=== PATIENT | male | born 1990 | race Caucasian/White ===

== ENCOUNTER 2017-05-14 15:34 | Emergency (ER) | payer SELFPAY ==
[~2017-05-14] VITALS: Ht 188 cm; Wt 107.3 kg
[2017-05-14] MEDS ORDERED: HYDROcodone/APAP 5/325 TABLET PO ONE (16:00)
[2017-05-14] MEDS ORDERED: KETOROLAC 30 MG/1 ML IM ONE (16:00)
[2017-05-14] MEDS ORDERED: DIAZEPAM 5 MG TABLET PO ONE (16:00)
[2017-05-14] MEDS ORDERED: DIAZEPAM 5 MG TABLET ONE (16:03)
[2017-05-14] MEDS ORDERED: HYDROcodone/APAP 5/325 TABLET ONE (16:04)
[2017-05-14] MEDS ORDERED: KETOROLAC 30 MG/1 ML ONE (16:04)
[2017-05-14 17:41] VITALS: BP 133/66
== END 2017-05-14 17:41 | disposition home or self-care (01) ==
LOC: ED 17:40
DX: S39.012A Strain of muscle, fascia and tendon of lower back, initial encounter (principal); M54.16 Radiculopathy, lumbar region; M54.18 Radiculopathy, sacral and sacrococcygeal region; X50.9XXA Other and unspecified overexertion or strenuous movements or postures, initial encounter; Y93.F2 Activity, caregiving, lifting; Y99.8 Other external cause status; Y92.89 Other specified places as the place of occurrence of the external cause
CPT/HCPCS: 96372; 99283; J1885

== ENCOUNTER 2017-07-30 21:36 | Observation (INO) | payer OTHER ==
[~2017-07-30] VITALS: Ht 185.4 cm; Wt 105.4 kg
[2017-07-30 22:21] LABS: MICROSCOPIC NOT IND
[2017-07-30 22:24] LABS: CULTURE INDICATED? NO
[2017-07-30 22:33] LABS: AMPHETAMINE SCREEN, URINE Negative (Negative); BARBITURATE SCREEN, URINE Negative (Negative); BENZODIAZEPINE SCREEN, URINE Negative (Negative); CANNABINOID SCREEN, URINE Negative (Negative); COCAINE SCREEN, URINE Negative (Negative); METHADONE SCREEN, URINE Negative (Negative); OPIATE SCREEN, URINE Negative (Negative)
[2017-07-30 22:49] LABS: MEAN CORPUSCULAR HEMOGLOBIN 30.5 pg (27.5-34.5); MEAN CORPUSCULAR HGB CONC 33.9 g/dL (33.2-36.2); MEAN PLATELET VOLUME 8.5 fL (7.4-10.4); PLATELET COUNT 294 x10^3/uL (130-400); RED BLOOD COUNT 5.51 x10^6/uL (4.38-5.82); RED CELL DISTRIBUTION WIDTH 15.3 % (9.4-14.8)
[2017-07-30 22:59] LABS: ALANINE AMINOTRANSFERASE 30 U/L (12-78); ALBUMIN 4.4 g/dL (3.4-5.0); ANION GAP 8 mmol/L (5-15); CHLORIDE 106 mmol/L (98-107); CREATININE 1.11 mg/dL (0.7-1.3)
[2017-07-30 23:01] LABS: ALKALINE PHOSPHATASE 87 U/L (45-117); BILIRUBIN,TOTAL 0.3 mg/dL (0.2-1.0); TOTAL PROTEIN 8.3 g/dL (6.4-8.2)
[2017-07-30 23:02] LABS: SALICYLATE LEVEL < 1.7 mg/dL (2.8-20.0)
[2017-07-30 23:03] LABS: ACETAMINOPHEN < 2 mcg/mL (10-30)
[2017-07-30 23:20] LABS: BASOPHILS % (AUTO) 1 % (0-1); EOSINOPHILS % (AUTO) 2 % (1-7); LYMPHOCYTES # (AUTO) 2.75 x10^3/uL (1-3.4); LYMPHOCYTES % (AUTO) 26 % (22-44); MD SCAN; MONOCYTES # (AUTO) 1.62 x10^3/uL (0.2-0.8); MONOCYTES % (AUTO) 15 % (2-9); NEUTROPHILS # (AUTO) 5.91 x10^3/uL (1.8-6.8); NEUTROPHILS % (AUTO) 56 % (42-75)
[2017-07-31] MEDS ORDERED: ZIPRASIDONE 40MG CAPSULE PO STA (02:53)
[2017-07-31] MEDS ORDERED: ONDANSETRON ODT 4 MG PO PRN (04:30)
[2017-07-31] MEDS ORDERED: BISACODYL 10 MG SUPP PR PRN (04:30)
[2017-07-31] MEDS ORDERED: DOCUSATE 100 MG CAPSULE PO PRN (04:30)
[2017-07-31 05:25] LABS: BASOPHILS # (AUTO) 0.24 x10^3/uL (0-0.1); BASOPHILS % (AUTO) 3 % (0-1); EOSINOPHILS # (AUTO) 0.17 x10^3/uL (0-0.4); EOSINOPHILS % (AUTO) 2 % (1-7); LYMPHOCYTES # (AUTO) 2.31 x10^3/uL (1-3.4); LYMPHOCYTES % (AUTO) 30 % (22-44); MD NO; MEAN CORPUSCULAR HEMOGLOBIN 30.5 pg (27.5-34.5); MEAN CORPUSCULAR HGB CONC 33.8 g/dL (33.2-36.2); MEAN CORPUSCULAR VOLUME 90.2 fL (81-97); MEAN PLATELET VOLUME 8.2 fL (7.4-10.4); MONOCYTES # (AUTO) 1.15 x10^3/uL (0.2-0.8); MONOCYTES % (AUTO) 15 % (2-9); NEUTROPHILS # (AUTO) 3.78 x10^3/uL (1.8-6.8); NEUTROPHILS % (AUTO) 49 % (42-75); PLATELET COUNT 265 x10^3/uL (130-400); RED BLOOD COUNT 5.13 x10^6/uL (4.38-5.82); RED CELL DISTRIBUTION WIDTH 15.3 % (9.4-14.8)
[2017-07-31 06:09] LABS: HEMOGLOBIN A1C 5.3 % (4.2-6.3)
[2017-07-31] MEDS ORDERED: NICOTINE 14MG/24 HR PATCH.TD24 ONE (08:21)
[2017-07-31] MEDS: NICOTINE 14MG/24 HR PATCH.TD24 TD SCH (08:31)
[2017-07-31] MEDS ORDERED: ZIPRASIDONE 20MG CAPSULE ONE (10:28)
[2017-07-31] MEDS ORDERED: ZIPRASIDONE 40MG CAPSULE PO ONE (10:30)
[2017-07-31] MEDS ORDERED: LORazepam 1MG TABLET ONE ×2 (17:30→23:59)
[2017-07-31] MEDS: LORazepam 1MG TABLET PO PRN (17:33)
[2017-07-31] MEDS ORDERED: ZOLPIDEM 5MG TABLET ONE (23:15)
[2017-07-31] MEDS: ZOLPIDEM 5MG TABLET PO PRN (23:17)
[2017-08-01] MEDS: LORazepam 1MG TABLET PO PRN ×5 (04:23→21:27)
[2017-08-01] MEDS: ACETAMINOPHEN 325 MG TABLET PO PRN ×2 (04:24→15:52)
[2017-08-01 05:36] LABS: MEAN CORPUSCULAR HEMOGLOBIN 30.4 pg (27.5-34.5); MEAN CORPUSCULAR HGB CONC 33.2 g/dL (33.2-36.2); MEAN CORPUSCULAR VOLUME 91.5 fL (81-97); MEAN PLATELET VOLUME 8.5 fL (7.4-10.4); PLATELET COUNT 252 x10^3/uL (130-400); RED BLOOD COUNT 5.03 x10^6/uL (4.38-5.82); RED CELL DISTRIBUTION WIDTH 15.2 % (9.4-14.8)
[2017-08-01 05:47] LABS: ANION GAP 8 mmol/L (5-15); CALCIUM 8.7 mg/dL (8.5-10.1); CHLORIDE 105 mmol/L (98-107); CREATININE 0.98 mg/dL (0.7-1.3)
[2017-08-01 06:01] LABS: MD YES
[2017-08-01 06:04] LABS: <PLATELET ESTIMATE> ADEQUATE; <PLT MORPHOLOGY> NORMAL PLT MORPH; <RBC MORPHOLOGY> NORMAL; BAND#(MANUAL) 0.07 x10^3/uL; BANDS%(MANUAL) 1 % (0-7); EOS#(MANUAL) 0.44 x10^3/uL (0.0-0.4); EOS% (MANUAL) 6 % (1-7); LYMPH#(MANUAL) 2.37 x10^3/uL (1-3.4); LYMPHS% (MANUAL) 32 % (22-44); MONOS#(MANUAL) 0.67 x10^3/uL (0.3-2.7); MONOS% (MANUAL) 9 % (2-9); SEG#(MANUAL) 3.85 x10^3/uL (1.8-6.8); SEGS% (MANUAL) 52 % (42-75)
[2017-08-01] MEDS: NICOTINE 14MG/24 HR PATCH.TD24 TD SCH (12:03)
[2017-08-01 12:15] VITALS: BP 115/66
[2017-08-01] MEDS: ZOLPIDEM 5MG TABLET PO PRN (19:21)
[2017-08-01] MEDS: QUETIAPINE 25MG TABLET PO PRN (21:27)
[2017-08-02] MEDS: LORazepam 1MG TABLET PO PRN ×6 (00:05→19:26)
[2017-08-02] MEDS ORDERED: NICOTINE 21 MG/24 HR PATCH.TD24 ONE (01:33)
[2017-08-02] MEDS: ZIPRASIDONE 20 MG INJ IM PRN ×2 (02:23→23:05)
[2017-08-02 09:22] VITALS: BP 112/64
[2017-08-02] MEDS ORDERED: TRAZODONE 50MG TABLET PO PRN (17:30)
[2017-08-02 19:24] VITALS: BP 142/81
[2017-08-03] MEDS: NICOTINE 21 MG/24 HR PATCH.TD24 TD SCH ×2 (05:30→09:51)
[2017-08-03 08:00] VITALS: BP 123/80
[2017-08-03] MEDS: LORazepam 1MG TABLET PO PRN ×6 (09:51→21:10)
[2017-08-03] MEDS: ACETAMINOPHEN 325 MG TABLET PO PRN ×2 (14:26→19:09)
[2017-08-03] MEDS: QUETIAPINE 25MG TABLET PO PRN (15:12)
[2017-08-03 19:04] VITALS: BP 137/82
[2017-08-03] MEDS: ZIPRASIDONE 20 MG INJ IM PRN (20:38)
[2017-08-04] MEDS: LORazepam 1MG TABLET PO PRN ×3 (02:43→11:42)
[2017-08-04] MEDS: ZIPRASIDONE 20 MG INJ IM PRN (02:43)
[2017-08-04 07:00] VITALS: BP 106/76
[2017-08-04] MEDS: ACETAMINOPHEN 325 MG TABLET PO PRN (07:45)
[2017-08-04] MEDS: NICOTINE 21 MG/24 HR PATCH.TD24 TD SCH (07:45)
[2017-08-04] MEDS ORDERED: QUET25TA PO (11:22)
[2017-08-04] MEDS ORDERED: TRAZ50TA18 PO (11:22)
== END 2017-08-04 12:30 | disposition home or self-care (01) ==
LOC: ED 23:06 → INTOOBSV 07-31 02:06 → EDIP 07-31 02:06 → 2N 08-01 04:00
PROVIDERS: ADMIT Surgery; ATTEND Surgery
DX: R45.851 Suicidal ideations (principal); D72.829 Elevated white blood cell count, unspecified; F32.9 Major depressive disorder, single episode, unspecified; F10.20 Alcohol dependence, uncomplicated; E11.65 Type 2 diabetes mellitus with hyperglycemia; Z91.5 Personal history of self-harm; Z72.0 Tobacco use
CPT/HCPCS: 36415; 80048; 80053; 80307; 80329; 81003; 83036; 85025; 96372; 99285; G0378; J3486; G0479; G0480